=== PATIENT | female | born 1950 | race Two or more races ===

== ENCOUNTER 2020-03-11 13:21 | Emergency (ER) | payer OTHER ==
[~2020-03-11] VITALS: Ht 160 cm; Wt 72.6 kg
[~2020-03-11 13:21] MED LIST: ATACAND HCT 31 UDTA1 PO; PREMPRO 0.3 MG/1 TAB PO
[2020-03-11] MEDS ORDERED: IBU800 MG PO (13:35)
[2020-03-11] MEDS ORDERED: TOPROL XL25 M1 PO (13:35)
[2020-03-11] MEDS ORDERED: KETO10TA2 PO (16:16)
== END 2020-03-11 17:00 | disposition home or self-care (01) ==
LOC: ER 13:21
DX: S93.492A Sprain of other ligament of left ankle, initial encounter (principal); S70.02XA Contusion of left hip, initial encounter; W10.8XXA Fall (on) (from) other stairs and steps, initial encounter; Y93.89 Activity, other specified; Y92.018 Other place in single-family (private) house as the place of occurrence of the external cause; Y99.8 Other external cause status

== ENCOUNTER 2024-01-31 05:56 | Day surgery (SDC) | payer OTHER ==
[~2024-01-31 05:56] MED LIST changes: +IBU800 MG PO; +KETO10TA2 PO; +LEVOTHYROXINE25 MCG PO; +MIRTAZAPINE7.5 MG PO; +TOPROL XL25 M1 PO
[2024-01-31] MEDS ORDERED: DIPHENHYDRAMINE HCL 50 MG/ML VIAL 1ML IV ONE (11:15)
[2024-01-31] MEDS ORDERED: GENTAMICIN SULFATE 40 MG/ML VIAL IR ONE (11:15)
[2024-01-31] MEDS ORDERED: POVIDONE-IODINE 118 ML BOTT TOP ONE (11:15)
[2024-01-31] MEDS ORDERED: VANCOMYCIN HCL 1,000 MG VIAL IR ONE (11:15)
[2024-01-31] MEDS ORDERED: CLINDAMYCIN PHOSPHATE 150 MG/ML (900mg) IV ONE (11:15)
[2024-01-31] MEDS ORDERED: MORPHINE SULFATE 2 MG/ML CARTRIDGE IV ONE (12:30)
== END 2024-01-31 13:40 | disposition home or self-care (01) ==
LOC: CIR.AMB 05:56
PROVIDERS: ATTEND Surgery
DX: D05.12 Intraductal carcinoma in situ of left breast (principal); N60.82 Other benign mammary dysplasias of left breast; R59.0 Localized enlarged lymph nodes; Z88.0 Allergy status to penicillin